=== PATIENT | female | born 1960 | race Hispanic/Latino ===

== ENCOUNTER 2017-06-10 14:28 | Emergency (ER) | payer MEDICAID, OTHER ==
[2017-06-10] MEDS ORDERED: SILVER SULFADIAZINE CREAM 50 GM TP ONE ×2 (15:01→16:20)
[2017-06-10] MEDS ORDERED: IBUPROFEN 600 MG TABLET ONE (15:02)
== END 2017-06-10 16:29 | disposition home or self-care (01) ==
LOC: EDH 14:28
DX: T23.272A Burn of second degree of left wrist, initial encounter (principal); T23.212A Burn of second degree of left thumb (nail), initial encounter; T23.221A Burn of second degree of single right finger (nail) except thumb, initial encounter; E11.9 Type 2 diabetes mellitus without complications; X15.0XXA Contact with hot stove (kitchen), initial encounter; Y93.89 Activity, other specified; Y92.89 Other specified places as the place of occurrence of the external cause; Y99.8 Other external cause status
CPT/HCPCS: 16020; 71045

== ENCOUNTER 2017-06-14 14:13 | Emergency (ER) | payer OTHER ==
[2017-06-14] MEDS ORDERED: KETOROLAC TROMETHAMINE 30MG/ML ONE (15:24)
[2017-06-14 15:33] LABS: APPEARANCE,URINE Clear (CLEAR); BILIRUBIN,URINE Negative (NEGATIVE); COLOR,URINE Yellow (YELLOW); GLUCOSE, URINE (UA) Negative (NEGATIVE); KETONES,URINE Negative (NEGATIVE); LEUKOCYTE ESTERASE ,URINE Negative (NEGATIVE); NITRATE,URINE Negative (NEGATIVE); OCCULT BLOOD,URINE Negative (NEGATIVE); PROTEIN,URINE Negative (NEGATIVE); UROBILINOGEN,URINE 0.2 mg/dL (0.2-1.0)
== END 2017-06-14 16:13 | disposition home or self-care (01) ==
LOC: EDH 14:13 → MERGE 14:13 → EDH 16:13
DX: M54.2 Cervicalgia (principal); E11.9 Type 2 diabetes mellitus without complications; Z88.8 Allergy status to other drugs, medicaments and biological substances; Z98.890 Other specified postprocedural states; V49.49XA Driver injured in collision with other motor vehicles in traffic accident, initial encounter; Y93.89 Activity, other specified; Y92.89 Other specified places as the place of occurrence of the external cause; Y99.8 Other external cause status
CPT/HCPCS: 81003; 96374; 99284; J1885

== ENCOUNTER 2019-06-09 14:52 | Emergency (ER) | payer OTHER ==
[2019-06-09] MEDS ORDERED: IBUPROFEN 800 MG TAB ONE (15:43)
[2019-06-09] MEDS ORDERED: TETANUS/DIPHTHERIA TOXOID [ADULT] 0.5 ML VIAL IM ONE (15:44)
== END 2019-06-09 16:20 | disposition home or self-care (01) ==
LOC: EDH 14:52
DX: S81.852A Open bite, left lower leg, initial encounter (principal); E11.9 Type 2 diabetes mellitus without complications; Z88.7 Allergy status to serum and vaccine; W54.0XXA Bitten by dog, initial encounter; Y93.89 Activity, other specified; Y92.098 Other place in other non-institutional residence as the place of occurrence of the external cause; Y99.8 Other external cause status
CPT/HCPCS: 90471; 90714

== ENCOUNTER 2020-06-09 11:22 | Emergency (ER) | payer SELFPAY ==
[2020-06-09] MEDS ORDERED: KETOROLAC TROMETHAMINE 60 MG/2 ML VIAL ONE (12:26)
[2020-06-09 12:29] LABS: BASOPHILS % (AUTO) 0.1 % (0.0-5.0); EOSINOPHILS % (AUTO) 1.8 % (0.0-8.0); LYMPHOCYTES % (AUTO) 16.9 % (21.0-51.0); MEAN CORPUSCULAR HEMOGLOBIN 29.4 pg (27.0-33.0); MEAN CORPUSCULAR HGB CONC 34.1 g/dL (32.0-36.0); MEAN CORPUSCULAR VOLUME 86.1 fL (79-99); MONOCYTES % (AUTO) 5.3 % (3.0-13.0); NEUTROPHILS % (AUTO) 75.6 % (40.0-77.0); PLATELET COUNT (AUTO) 214 K/uL (130-400); RED BLOOD CELL COUNT(AUTO) 4.76 MIL/uL (4.00-5.50); RED CELL DISTRIBUTION WIDTH 12.4 % (11.0-15.5); WHITE BLOOD COUNT (AUTO) 7.1 K/uL (4.8-10.8)
[2020-06-09 12:39] LABS: INR 0.94 (0.85-1.15); PROTHROMBIN TIME 10.3 SEC (9.6-11.6)
[2020-06-09 12:40] LABS: PARTIAL THROMBOPLASTIN TIME 25.9 SEC (26.3-35.5)
[2020-06-09 13:09] LABS: CREATININE 0.8 mg/dL (0.5-1.5); POTASSIUM 4.5 mmol/L (3.5-5.1)
[2020-06-09 13:14] LABS: ALBUMIN 3.4 g/dL (3.5-5.0); BILIRUBIN,TOTAL 0.7 mg/dL (0.2-1.0); TOTAL PROTEIN, SERUM 7.5 g/dL (6.0-8.3)
[2020-06-09] MEDS ORDERED: ASPIRIN 325 MG TABLET ONE (13:31)
[2020-06-09] MEDS ORDERED: NITROGLYCERIN 1GM/1 INCH PACKET TD ONE (13:32)
== END 2020-06-09 14:40 | disposition home or self-care (01) ==
LOC: EDH 11:22
DX: M54.2 Cervicalgia (principal); E11.9 Type 2 diabetes mellitus without complications; Z88.7 Allergy status to serum and vaccine
CPT/HCPCS: 36415; 80053; 84484 ×2; 85025; 85610; 85730; 93005 ×2; 96372; 99284; J1885

== ENCOUNTER 2023-06-09 17:22 | Emergency (ER) | payer BC, OTHER, SELFPAY ==
[~2023-06-09] VITALS: Ht 152.4 cm; Wt 68.0 kg
[2023-06-09] MEDS: CYCLOBENZAPRINE HCL 10 MG TABLET PO ONE (19:39)
[2023-06-09] MEDS: KETOROLAC 60 MG VIAL (30MG/ML) IM ONE (19:40)
[2023-06-09] MEDS ORDERED: IBUP-1493 PO (20:23)
[2023-06-09 20:39] VITALS: BP 161/71; PULSE 89; RESP 18; O2SAT 98
== END 2023-06-09 20:40 | disposition home or self-care (01) ==
LOC: EDH 17:22
DX: S00.83XA Contusion of other part of head, initial encounter (principal); E11.9 Type 2 diabetes mellitus without complications; W18.39XA Other fall on same level, initial encounter; Y93.89 Activity, other specified; Y92.89 Other specified places as the place of occurrence of the external cause; Y99.8 Other external cause status
CPT/HCPCS: 99285; 70450; 72125; 96372; J1885

== ENCOUNTER 2024-10-07 01:30 | Emergency (ER) | payer BC, OTHER ==
[~2024-10-07] VITALS: Ht 152.4 cm; Wt 77.1 kg
[~2024-10-07 01:30] MED LIST: IBUP-1493 PO
--- NOTE | 2024-10-07 01:39 | NUR ---
PATIENT REPORTS SLIPPED WITH LIQUID LAUNDRY DETERGENT THAT WAS SPILLED ON THE FLOOR AT HOME. DENIES LOC
--- NOTE | 2024-10-07 02:16 | ERN ---
General Chief Complaint: Head, Face, Neck Trauma Stated Complaint: CLOSED HEAD INJURY S/P GROUND LEVEL FALL Time Seen by MD: 01:41 Source: patient History of Present Illness Initial Comments Patient is a 64-year-old female who slipped on some soap and as she was falling down she hit her head on the tub in the bathroom. She does did not lose consciousness. She can move all of her extremities. She is not on blood thinners. Timing/Duration: 4-6 hours Allergies: Coded Allergies: No Known Allergies (Unverified Allergy, Unknown, 06/09/23) Home Meds Active Scripts Ibuprofen (Motrin/Advil) 800 Mg Tab, 800 MG PO Q8H, #12 TAB Prov:JEANE WILDE MD 06/09/23 Past Medical History Past Medical History: Diabetes-Type II Past Surgical History: Unknown ROS Dictation Aside from feeling embarrassed review of systems is otherwise negative. Constitutional: (-) chills, (-) diaphoresis, (-) fever, (-) malaise, (-) weakness, (-) other documentation EENTM: (-) eye pain, (-) blurred vision, (-) tearing, (-) double vision, (-) ear pain, (-) ear discharge, (-) nose pain, (-) nose congestion, (-) throat pain, (-) Throat swelling, (-) mouth pain, (-) tooth pain, (-) mouth swelling, (-) other documentation Respiratory: (-) cough, (-) orthopnea, (-) short of breath, (-) stridor, (-) wheezing, (-) other documentation Cardiovascular: (-) chest pain, (-) edema, (-) palpitations, (-) syncope, (-) dyspnea on exertion, (-) other documentation Gastrointestinal/Abdominal: (-) nausea, (-) vomiting, (-) diarrhea, (-) abdominal pain, (-) abdominal distention, (-) constipation, (-) rectal bleeding, (-) dark stool/melena, (-) other documentation Musculoskeletal: (-) Neck pain, (-) back pain, (-) Flank Pain, (-) joint pain, (-) joint swelling, (-) muscle pain, (-) muscle stiffness, (-) gout, (-) other documentation Neuro: (-) altered mental status, (-) headache, (-) syncope, (-) paralysis, (-) numbness, (-) seizure, (-) pre-existing deficit, (-) tremors, (-) weakness, (-) dizziness, (-) slurred speech, (-) vertigo, (-) other documentation Physical Exam Orientation: (+) alert, (+) oriented x 3 Head/Face Trauma: Yes (Patient has a hematoma on the mid right parietal occipital area of her skull.) Eye: bilateral eye normal inspection, bilateral eye PERRL, bilateral eye EOMI Ear, Nose, Throat: (+) hearing grossly normal Neck: (+) normal inspection, (+) supple, (+) full range of motion, (+) no JVD, (+) non-tender MDM We will order a noncontrast CT scan of the patient's head. I have no suspicion for any neck injury. Currently the patient is not exhibiting any central nervous system deficits. Patient's head CT is negative. I will discharge her home. ED Course Orders Procedure Category Date Status Time Ct Head/Brain W/O CT 10/07/24 Taken Contrast 01:42 Vital Signs Date Time Temp Pulse Resp B/P (MAP) Pulse Ox O2 Delivery O2 Flow Rate FiO2 10/07/24 01:34 98.4 92 18 183/81 100 Room Air* 0 21 10/07/24 01:33 98.2 101 16 171/95 99 Room Air 0 DX & DISP Disposition: Discharge Departure Impression: Primary Impression: Fall Additional Impression: Contusion of unspecified part of head, initial encounter Condition: Stable Additional Instructions: Please return if you have any changes in vision, worsening headaches, difficulty with balance. Referrals: NONE (PCP) ANTON ENCINAS MD Oct 07, 2024 02:16
[2024-10-07 04:04] VITALS: BP 157/79; PULSE 90; RESP 18; TEMP 98.5; O2SAT 99
--- NOTE | 2024-10-07 10:26 | HMCIMG ---
Exam: NONCONTRAST CT BRAIN REASON: fall. COMPARISON: 06/09/2023 TECHNIQUE: Images are obtained from vertex to the skull base. The exam was performed without IV contrast. FINDINGS: There is normal appearing brain parenchyma. There are no focal mass lesions. There is is no evidence of intracranial hemorrhage or acute stroke. Ventricles and sulci appear normal. Posterior fossa and brainstem structures are unremarkable. Paranasal sinuses and remaining extracranial soft tissues appear normal as well. IMPRESSION: 1. Normal noncontrast CT brain. CT was performed with one or more following dose reduction techniques: automated exposure control, adjustment of the mA and kv according to patient's size, or use of a iterative reconstruction technique.
== END 2024-10-07 04:05 | disposition home or self-care (01) ==
LOC: EDH 01:30
DX: S00.93XA Contusion of unspecified part of head, initial encounter (principal); E11.9 Type 2 diabetes mellitus without complications; W18.39XA Other fall on same level, initial encounter; Y93.89 Activity, other specified; Y92.89 Other specified places as the place of occurrence of the external cause; Y99.8 Other external cause status
CPT/HCPCS: 70450; 99284